=== PATIENT | male | born 2000 | race Caucasian/White ===

== ENCOUNTER 2021-04-14 15:44 | Day surgery (SDC) | payer OTHER ==
[~2021-04-14] VITALS: Ht 172.7 cm; Wt 63.6 kg
[2021-04-14 17:06] LABS: HEMATOCRIT 47.6 % (42.0-52.0); HEMOGLOBIN 17.1 g/dl (13.5-18.0); MEAN CELL VOLUME 87 fl (80.0-100.0); MEAN CORPUSCULAR HEMOGLOBIN 31 pg (27.0-31.0); MEAN CORPUSCULAR HGB CONC 36 g/dl (33.0-37.0); MEAN PLATELET VOLUME 10.2 fl (7.4-10.4); PLATELET COUNT 260 K/mm3 (130-400); RED BLOOD COUNT 5.49 M/mm3 (4.20-5.60); REDCELL DISTRIBUTION WIDTH-CV 11.8 % (11.5-14.5)
[2021-04-14 17:11] LABS: COLLECTION METHOD CLEAN CATCH
[2021-04-14 17:17] LABS: MUCOUS Present /lpf; PH 5 (5-8); SQUAMOUS EPITHELIAL None Seen /hpf; URINE APPEARANCE Clear; URINE BACTERIA None Seen /hpf; URINE BILIRUBIN Negative (NEGATIVE); URINE BLOOD Negative (NEGATIVE); URINE COLOR Straw; URINE GLUCOSE Negative (NEGATIVE); URINE KETONE 2+ (NEGATIVE); URINE LEUKOCYTE ESTERASE Negative (NEGATIVE); URINE NITRATE Negative (NEGATIVE); URINE PROTEIN(semi-quant) Negative (NEGATIVE); URINE RBC 0-2 /hpf; URINE UROBILINOGEN Negative (NEGATIVE)
[2021-04-14 17:26] LABS: ALBUMIN 5.3 gm/dL (3.5-5.0); BILIRUBIN,TOTAL 1.2 mg/dL (0.0-1.0); CALCIUM 9.9 mg/dL (8.4-10.2); CREATININE, serum 0.79 (0.66-1.25); TOTAL PROTEIN 8.8 gm/dL (6.4-8.2)
[2021-04-14 17:33] LABS: BAND 3 % (0-10); LYMPHOCYTE 1 % (20.0-51.0); NEUTROPHILS 88 % (42.0-75.2); PLATELET ESTIMATE NORMAL (NORMAL)
[2021-04-14 21:43] VITALS: BP 118/69; PULSE 85; TEMP 99.1
[2021-04-14 21:58] VITALS: BP 114/61; PULSE 81; TEMP 98.2
[2021-04-14 22:13] VITALS: BP 118/65; PULSE 79; TEMP 98.4
[2021-04-14 22:28] VITALS: BP 109/51; PULSE 70; TEMP 98.3
[2021-04-14 22:58] VITALS: BP 116/57; PULSE 73; TEMP 98.1
[2021-04-15 00:28] VITALS: BP 11/66; PULSE 77; TEMP 98.3
[2021-04-15 01:28] VITALS: BP 111/67; PULSE 68; TEMP 98
--- NOTE | 2021-04-15 02:52 | NUR ---
Sree came up last night around 2200 from surgery. Admission assessment done, alert and oriented. Complains of cramping but not pain. Denies the needs of pain meds. He just asked for food to eat. He is in general diet. Had a sandwich tray with no pains in his belly. He has 3x puncture site covered with band aid. Otherwise VS are stable and no further complains. Continue to follow.
[2021-04-15 05:24] VITALS: BP 107/56; PULSE 55; TEMP 97.6
[2021-04-15 07:37] VITALS: BP 94/44; PULSE 60; TEMP 97.8
--- NOTE | 2021-04-15 08:54 | NUR ---
Shift assessment preformed. Patient denies any pain, discomfort, SOA, N/V/D. Patient A&O. Lap sites are dressed with a bandaide. They are clean, dry, and intact. VSS. Call light in reach.
--- NOTE | 2021-04-15 10:10 | NUR ---
Patient deemed fit for discharge. IV DC'd, catheter intact, no signs of phlebitis. Discharge instructions/education given. Patient denies any pain, discomfort, N/V/D, questions, or concerns at this time. Patient A&O. VSS. Patient ambulated from building escorted by [facility]. Family transporting home.
--- NOTE | 2021-04-15 10:47 | NUR ---
SW met with patient to complete intake. Patient states that he lives in [place] with some college friends and that his next of kin is his father Tab [phone]. Patient states that he does not utilise DME and is independent with ADL's, does not have a PCP, and utilizes [facility] as his pharmacy. Patient states that he does not have a DPOA-HC. Father Tab entered room during intake and stated that he was the DPOA-HC. SW requested father to provide a copy to the facility when he could for patient records. Patient and father stated that patient will be going to [place] as DC plan with family. Patient dc'd shortly after intake. Nothing further.
== END 2021-04-15 10:15 | disposition home or self-care (01) ==
LOC: COL.ER 15:44 → SDCO 18:38 → MEDICAL 18:38 → COL.ER 18:38 → MEDICAL 04-15 10:15 → SDCO 04-15 10:15
PROVIDERS: Nurse Practitioner
DX: K35.80 Unspecified acute appendicitis (principal)
CPT/HCPCS: OP; G0378; J0330; J1100; J1170; J2250; J2405; J2543; J2704; J3010; J7030; J7120; Q9967